=== PATIENT | female | born 1975 | race Caucasian/White ===

== ENCOUNTER 2020-08-23 19:29 | Emergency (ER) | payer OTHER ==
[2020-08-23] MEDS ORDERED: IBUPROFEN600 MG PO (20:32)
[2020-08-23] MEDS ORDERED: BACTRIM DS TAB1 EACH PO (20:32)
[2020-08-23] MEDS ORDERED: BACTROBAN OINT22 GM EXT (20:32)
== END 2020-08-23 20:45 | disposition home or self-care (01) ==
LOC: ER1 19:29
DX: L02.413 Cutaneous abscess of right upper limb (principal); F17.210 Nicotine dependence, cigarettes, uncomplicated; Z79.899 Other long term (current) drug therapy
CPT/HCPCS: 10060; 87070; 87205; 99283